=== PATIENT | male | born 2000 | race Hispanic/Latino ===

== ENCOUNTER 2022-04-09 08:28 | Emergency (ER) | payer OTHER ==
[~2022-04-09] VITALS: Ht 170.2 cm; Wt 113.4 kg
[2022-04-09] MEDS ORDERED: METFORMIN HCL500 MG PO (08:48)
== END 2022-04-09 09:05 | disposition home or self-care (01) ==
LOC: ER 08:33
DX: E11.65 Type 2 diabetes mellitus with hyperglycemia (principal)
CPT/HCPCS: 99282